=== PATIENT | female | born 1965 | race Two or more races ===

== ENCOUNTER → 2025-04-10 | Day surgery (SDC) | payer MEDICAID ==
[2025-04-03 11:47] LABS: Hematocrit 43.8 % (36.0-46.0); Hemoglobin 14.6 g/dL (12.2-16.2); Mean Corpuscular Hemoglobin 30.1 pg (28.0-32.0); Mean Corpuscular Volume 90.5 fL (80.0-100.0); Nucleated Red Blood Cells % 0.0 %
[2025-04-03 11:59] LABS: Alanine Aminotransferase 24 U/L (7-40); Albumin 4.6 g/dL (3.2-4.8); Alkaline Phosphatase 61 U/L (46-116); Anion Gap 4 (5-15); BUN/Creatinine Ratio 19.5 (10.0-20.0); Blood Urea Nitrogen 17 mg/dL (9-23); Calcium 10.2 mg/dL (8.7-10.4); Carbon Dioxide 27 mmol/L (20-31); Glucose 88 mg/dL (74-106); Potassium 4.5 mmol/L (3.5-5.1); Sodium 141 mmol/L (136-145); Total Protein 7.0 g/dL (5.7-8.2)
[2025-04-03 12:00] LABS: Bilirubin, Total 0.6 mg/dL (0.2-1.0); Chloride 110 mmol/L (98-107)
[2025-04-03 12:01] LABS: INR 0.96 (0.9-1.15); Partial Thromboplastin Time 27.6 SEC (24.5-34.5); Prothrombin Time 10.2 sec (9.3-11.8)
[2025-04-03 12:02] LABS: Urine Budding Yeast OCCASIONAL /hpf (None Seen); Urine Protein, UAD Negative (Negative)
[~2025-04-10] VITALS: Ht 170.2 cm; Wt 101.6 kg
[~2025-04-10] MED LIST: AML5T PO; ASPI-378 OR; BLAC1CAP11 PO; CHOL20004 PO; CINNOIL4 XX; DOCU-94 PO; FENO145T27 PO; FLAXOIL4 OR; GARL400T2 PO; GING250C2 PO; LIDOCAINE 1%HCL (LOCAL ANESTH) 10 ML MDV IV ONE; MULT-733 OR; ONDANSETRON HCL 4 MG/2 ML VIAL ONE; PROPOFOL 10 MG/ML 20 ML IV ONE; SEMA2INJ3 SC; TURM500C3 OR; [UNRECOGNIZED DRUG - CODE] PO
--- NOTE | 2025-04-10 09:37 | DVHHP2 ---
GI H&P Pre-Op Assessment Date: 04/10/25 Chief complaint: positive Cologuard test HPI: per clinic note Past medical history: per clinic note Past surgical history: per clinic note Family history: per clinic note Physical exam: General: NAD, AAOX3 HEENT: PERRL, no scleral icterus, normal hearing, gums without lesions or bleeding, oropharynx clear without erythema or exudate. Neck: Supple without enlargement of the thyroid, or lymphadenopathy. Chest: Normal size and shape, no tenderness, lung collado clear to auscultation and percussion, nonlabored breathing. Heart: RRR, no murmur Abdomen: non-distended, no tenderness to palpation, +BS, no hepatosplenomegaly Extremities: no edema Neurological: CN II-XII intact, sensation intact in all extremities, 5+ strength in all extremities Skin: No rashes, No jaundice Assessment: - positive Cologuard test Plan: - Colonoscopy - Risks (bleeding, infection, perforation, reaction to sedation medications and cardiopulmonary arrest) and benefit of the procedure were explained to patient. Patient agrees to undergo the procedure. JEFFERSON WOODWARD MD Apr 10, 2025 09:37
[2025-04-10 10:18] VITALS: PULSE 78; RESP 19; TEMP 97.8
--- NOTE | 2025-04-10 10:20 | DVHOP2 ---
Operative Report DATE OF OPERATION: 04/10/25 PROCEDURE: Colonoscopy. PREOPERATIVE INDICATION: The patient is a 59 -year-old female with family history of colon cancer and history of colon polyp undergoing colonoscopy for colon cancer screening. POSTOPERATIVE DIAGNOSES: 1. Two 3 mm polyps in the right colon was removed with cold biopsies. 2. Three transverse colon range from 2-4 mm were removed with cold biopsies. 3. A 7 mm transverse colon polyp was injected with polyp lift, partially snare and removed with cold biopsies. 4. Diffuse diverticulosis with mostly in the left colon. 5. Internal hemorrhoids. PROCEDURE PERFORMED BY: Eligio Kaur M.D. SCOPE: Olympus videocolonoscope. ASA CLASS: 3 PREOPERATIVE MEDICATIONS: MAC with Ochoa NATACHA PROCEDURE IN DETAIL: After obtaining an informed consent, the patient was placed on left lateral decubitus position. She was then sedated with the above medications. A rectal examination was performed that was normal. The colonoscope was then passed through the anus into the rectosigmoid and through the descending, transverse, and ascending colon up to the cecum with visualization of the appendiceal orifice, base of the cecum and the ileocecal valve. Two 3 mm polyps in the right colon was removed with cold biopsies. Three transverse colon range from 2-4 mm were removed with cold biopsies. A 7 mm transverse colon polyp was injected with polyp lift, partially snared and rest was removed with cold biopsies. There was diffuse diverticulosis with mostly in the left colon. There were internal hemorrhoids. The colonoscope was then withdrawn. The patient tolerated the procedure well without difficulty. WITHDRAWAL TIME: 20 minutes QUALITY OF THE PREP: [place] Bowel Prep score: 6 COMPLICATIONS : None SPECIMENS: Colon polyps DISPOSITION: D/C to home PLAN: 1. Repeat colonoscopy base on biopsy result ELIGIO KAUR MD Apr 10, 2025 10:20
--- NOTE | 2025-04-10 10:21 | DVHDS2 ---
Physician Discharge Progress N Final Diagnosis: Colon polyps, diverticulosis, internal hemorrhoids Operations or Procedures: Operations or Procedures Colonoscopy with cold biopsy, snare polypectomy, injection Condition on Discharge: Good Disposition: Home Discharge Instructions: Diet: Regular Activity: No Restrictions, As Tolerated Medications: Resume previous home medications Follow Up Care: Discharge Statement: "Patient was advised to return to the ER or call 911 if any headaches, dizziness, shortness of breath, chest pain, abdominal pain, bleeding, fevers, or worsening of medical condition. Patient was counseled about treatment plan, medications, possible side effects, patientverbalized understanding. All questions were answered to the best of my ability. This discharge took greater then 30 minutes in planning, reviewing documentation, counseling the patient, and discussing with other team members." JEFFERSON WOODWARD MD Apr 10, 2025 10:20
[2025-04-10 10:40] VITALS: BP 137/57; PULSE 71; RESP 18; O2SAT 100
== END | disposition home or self-care (01) ==
LOC: GI 08:03
PROVIDERS: ATTEND Internal Medicine Gastroenterology
DX: R19.5 Other fecal abnormalities (principal); D12.3 Benign neoplasm of transverse colon; K63.5 Polyp of colon; K57.30 Diverticulosis of large intestine without perforation or abscess without bleeding; K64.8 Other hemorrhoids; I10 Essential (primary) hypertension; F17.210 Nicotine dependence, cigarettes, uncomplicated; E66.01 Morbid (severe) obesity due to excess calories; Z68.35 Body mass index [BMI] 35.0-35.9, adult; Z79.899 Other long term (current) drug therapy; Z90.49 Acquired absence of other specified parts of digestive tract; Z98.890 Other specified postprocedural states; Z80.0 Family history of malignant neoplasm of digestive organs
CPT/HCPCS: 36415; 45380; 45381; 45385; 80053; 81001; 85025; 85610; 85730; 88305; J2003; J2405; J2704; J7030